=== PATIENT | female | born 1950 | race Caucasian/White ===

== ENCOUNTER 2023-12-10 07:24 | Outpatient (NON) | payer MEDICARE, SELFPAY | END 2023-12-10 07:25 | disposition home or self-care (01) | PROVIDERS: PCP Family Medicine; Visit Provider Internal Medicine Gastroenterology | DX: R13.10 Dysphagia, unspecified (principal) | CPT/HCPCS: 88305 ==

== ENCOUNTER 2023-12-10 08:52 | Day surgery (SDC) | payer MEDICARE, SELFPAY ==
[2023-11-25 15:23] VITALS: BMI 25.9
[2023-11-28 14:51] VITALS: BMI 25.5
--- NOTE | 2023-12-09 20:03 | PM.HPGS ---
History of Present Illness History of Present Illness Consent: Risks, benefits, and alternatives have been discussed and questions answered. Patient agrees to proceed with procedure. Chief complaint: HX Colon Polyps, Dysphagia, Chest pain Narrative: Marcella Gunderson is a 73 year old female referred to our office at the request of Dr. Ojeda for esophageal dysphagia. She has a past medical history of personal history of colon polyps, osteoporosis, bilateral cataract extraction and a sinus surgery. She states beginning October 17 she noticed a discomfort on the right side of her chest that she described as feeling ?bruised?. She states over the next 2 days she began having pain in between her breasts bones with eating or drinking. She states she stopped eating or drinking. She had nausea but no vomiting. Denies any dysphagia. She states the only thing that had been changed if she was started on Fosamax for osteoporosis and took 3 doses and has since discontinued. She denies any chronic NSAID use. She denies any associated epigastric or right upper quadrant abdominal pain. She denies any change in bowel habits, constipation, diarrhea or melena. She has never had an EGD. She states her aunt had colon cancer. She has a hstory of poyps. Review of Systems Review of Systems: All systems reviewed & are unremarkable except as noted in HPI and below PMFSH Past Medical History Medical History Osteoporosis Sinus of skin after surgical procedure Surgical History Surgical History H/O bilateral cataract extraction Social History Social History Smoking status: Never smoker Substance use type: does not use Living arrangements: with family Spiritual care concerns: No Meds Home Medications and Allergies Home Medications Medication Instructions Recorded Confirmed Type amitriptyline 25 mg tablet 50 mg PO HS 11/28/23 12/10/23 History calcium carbonate (Calcium 600) 600 mg PO DAILY 11/28/23 12/10/23 History cholecalciferol (vitamin D3) 50 50 mcg PO DAILY 11/28/23 12/10/23 History mcg (2,000 unit) capsule (Vitamin D3) ivermectin 1 % topical cream 1 applic topical DAILY 11/28/23 12/10/23 History (Soolantra) magnesium 500 mg tablet 500 mg PO DAILY 11/28/23 12/10/23 History pantoprazole 40 mg tablet,delayed 40 mg PO BID 11/28/23 12/10/23 History release Allergies Allergy/AdvReac Type Severity Reaction Status Date / Time No Known Allergies Allergy Verified 12/10/23 09:22 Exam Const: General: alert Orientation/consciousness: patient oriented x3 Resp: Auscultation: clear to auscultation bilaterally Cardio: Rhythm: regular rhythm GI: GI Palp: Yes Soft to palpation and No Tenderness to palpation present (GI) Neuro: General: patient oriented x3 Assessment and Plan Assessment and plan (1) Odynophagia: Code(s): R13.10 - Dysphagia, unspecified Status: Acute Assessment and Plan: EGD with possible biopsy or dilatation or cautery. (2) Hx of colonic polyps: Code(s): Z86.010 - Personal history of colonic polyps Status: Acute Assessment and Plan: Colonoscopy with possible biopsy or polypectomy or cautery or injection of substances.
[2023-12-10 09:23] VITALS: BP 116/74; PULSE 74; RESP 15; TEMP 37.4; O2SAT 99
[2023-12-10] MEDS: LACTATED RINGERS 1,000 ML 150 ML IV CONT (09:29)
--- NOTE | 2023-12-10 09:44 | P.PNAN_ITS ---
Anes - Initial Pre Proc Eval Procedure: Operation Date: 12/10/23 10:30 Proposed Procedures p Esophagogastroduodenoscopy - Mal Mccartney MD s Diagnostic Colonoscopy - Mla Mccartney MD Date/Time: 12/10/23 09:44 Surgeon: Mal Mccartney MD Pre Op Diagnosis: HX Colon Polyps, Dysphagia, Chest pain Patient Data Age: 73 Gender: F Height: 1.63 m Weight: 66.4 kg Last Vital Signs Temp 37.4 C 12/10/23 09:23 Pulse 74 12/10/23 09:23 Resp 15 12/10/23 09:23 BP 116/74 12/10/23 09:23 Pulse Ox 99 12/10/23 09:23 O2 Del Method Room Air 12/10/23 09:23 Allergies Allergy/AdvReac Type Severity Reaction Status Date / Time No Known Allergies Allergy Verified 12/10/23 09:22 Home Medications Medication Instructions Recorded Confirmed Type amitriptyline 25 mg tablet 50 mg PO HS 11/28/23 12/10/23 History calcium carbonate (Calcium 600) 600 mg PO DAILY 11/28/23 12/10/23 History cholecalciferol (vitamin D3) 50 50 mcg PO DAILY 11/28/23 12/10/23 History mcg (2,000 unit) capsule (Vitamin D3) ivermectin 1 % topical cream 1 applic topical DAILY 11/28/23 12/10/23 History (Soolantra) magnesium 500 mg tablet 500 mg PO DAILY 11/28/23 12/10/23 History pantoprazole 40 mg tablet,delayed 40 mg PO BID 11/28/23 12/10/23 History release Patient hx anesthesia problems: none Family hx anesthesia problems: none Results Review: All pre-operative results and documents have been reviewed as part of the pre- operative evaluation. [facility] Past Medical History Medical History Osteoporosis Sinus of skin after surgical procedure Surgical History Surgical History H/O bilateral cataract extraction Social History Social History Smoking status: Never smoker Substance use type: does not use Living arrangements: with family Spiritual care concerns: No Anes - Eval Final PreProcedure Day of Procedure 12/10/23 09:44 Patient weight: normal Heart: regular rate and rhythm Lungs: clear to auscultation Airway: Mallampati scale class II Neurological: alert and oriented Last oral intake: >/= 8 hours ASA classification: II Emergent: no Anesthetic plan: proceed Anesthesia type and monitoring: general GIVS and standard monitoring Results Review: All pre-operative results and documents have been reviewed as part of the pre- operative evaluation. Informed Consent: The patient's anesthetic plan and its attendant risks and benefits were discussed with the patient/family/POA. Questions were solicited and answers provided to the satisfaction of the patient/family/POA.
[2023-12-10 10:26] VITALS: BP 101/67; PULSE 74; RESP 14; O2SAT 97
[2023-12-10 10:36] VITALS: BP 105/69; PULSE 65; RESP 14; O2SAT 100
--- NOTE | 2023-12-10 10:36 | WPDANESPN ---
Anes - Prog Note Post-Op Date/Time: 12/10/23 10:36 Cardiovascular status: normal Respiratory status: normal Airway patency: baseline Mental status: baseline Post-Op hydration status: normal Vital Signs: Last Vital Signs Temp 37.4 C 12/10/23 09:23 Pulse 74 12/10/23 10:26 Resp 14 12/10/23 10:26 BP 101/67 12/10/23 10:26 Pulse Ox 97 12/10/23 10:26 O2 Del Method Room Air 12/10/23 10:26 Pain Score (VAS): 0/10 I/O: Intake & Output 12/09/23 12/10/23 12/10/23 23:59 07:59 15:59 Intake Total 400 Balance 400 Patient Feedback: Patient satisfied with anesthetic care.
[2023-12-10 10:46] VITALS: BP 115/75; PULSE 63; RESP 15; O2SAT 100
== END 2023-12-10 10:51 | disposition home or self-care (01) ==
PROVIDERS: PCP Family Medicine; Visit Provider Internal Medicine Gastroenterology
PROC: 0DJ08ZZ Inspection of Upper Intestinal Tract, Via Natural or Artificial Opening Endoscopic (ICD-10-PCS; CPT 43235; principal; 2023-12-10 10:30)
PROC: 0DJD8ZZ Inspection of Lower Intestinal Tract, Via Natural or Artificial Opening Endoscopic (ICD-10-PCS; CPT 45378; 2023-12-10 10:30)
DX: Z12.11 Encounter for screening for malignant neoplasm of colon (principal); R13.10 Dysphagia, unspecified; K57.30 Diverticulosis of large intestine without perforation or abscess without bleeding; K21.00 Gastro-esophageal reflux disease with esophagitis, without bleeding
CPT/HCPCS: 45378; 43239